=== PATIENT | female | born 1960 | race Caucasian/White ===

== ENCOUNTER 2023-04-17 08:32 | Day surgery (SDC) | payer BC ==
[~2023-04-17 08:32] MED LIST: Lactated Ringers 1,000 ML IV SCH
[2023-04-17] MEDS ORDERED: Sodium Chloride 0.9% 1,000 ML IV SCH (09:15)
[2023-04-17] MEDS ORDERED: propofoL 50 ML ONE (09:44)
[2023-04-17] MEDS ORDERED: ePHEDrine 50 MG/ML SDV ONE (10:11)
== END 2023-04-17 11:00 | disposition home or self-care (01) ==
LOC: MW.SDS 08:32
PROVIDERS: ATTEND Surgery
DX: Z12.11 Encounter for screening for malignant neoplasm of colon (principal); I12.9 Hypertensive chronic kidney disease with stage 1 through stage 4 chronic kidney disease, or unspecified chronic kidney disease; N18.9 Chronic kidney disease, unspecified; E78.00 Pure hypercholesterolemia, unspecified; Z90.710 Acquired absence of both cervix and uterus; Z87.891 Personal history of nicotine dependence; Z79.899 Other long term (current) drug therapy
CPT/HCPCS: 45378; J2704; J7030; 00812; J3490; J7120

== ENCOUNTER 2023-04-17 13:59 | Emergency (ER) | payer BC ==
[2023-04-17] MEDS ORDERED: Ondansetron 4 MG/2 ML SDV IVPUSH STA (14:36)
[2023-04-17] MEDS ORDERED: Sodium Chloride 0.9% 1,000 ML IV STA (14:36)
[2023-04-17] MEDS ORDERED: Sodium Chloride 0.9% 10 ML Syringe FLUSH PRN (14:36)
[2023-04-17] MEDS ORDERED: Sodium Chloride 0.9% 2.5 ML Syringe FLUSH PRN (14:36)
[2023-04-17 15:25] LABS: BASOPHILS ABSOLUTE AUTO 0.02 K/uL (0.00-0.20); BASOPHILS PERCENT AUTO 0.1 % (0.0-1.0); HEMOGLOBIN 12.1 g/dL (12.0-16.0); IMMATURE GRAN ABSOLUTE AUTO 0.05 K/uL (0.00-0.05); IMMATURE GRAN PERCENT AUTO 0.3 % (0.0-0.4); LYMPHOCYTES PERCENT AUTO 2.3 % (24.0-44.0); MEAN CORPUSCULAR HEMOGLOBIN 31.5 pg (28.0-32.0); MEAN CORPUSCULAR HGB CONC 35.6 g/dL (32.0-36.0); MEAN CORPUSCULAR VOLUME 88.5 fL (83.0-99.0); MEAN PLATELET VOLUME 9.8 fL (9.4-12.3); MONOCYTES ABSOLUTE AUTO 0.41 K/uL (0.00-0.80); MONOCYTES PERCENT AUTO 2.4 % (0.0-8.0); NEUTROPHILS ABSOLUTE AUTO 16.41 K/uL (1.80-7.70); NEUTROPHILS PERCENT AUTO 94.9 % (41.0-71.0); PLATELET COUNT,PLT 273 K/uL (150-400); RED BLOOD CELL COUNT 3.84 M/uL (4.10-5.30); WHITE BLOOD CELL COUNT,WBC 17.29 K/uL (3.9-11.3)
[2023-04-17] MEDS ORDERED: droPERidol 5 MG/2 ML SDV IVPUSH STA (15:41)
[2023-04-17 16:00] LABS: A/G RATIO 1.2 (0.9-1.6); ALBUMIN 4.5 g/dL (3.4-5.0); EST CRCL DRUG DOSING (CG) 15.99 mL/min; PROTEIN TOTAL,TP 8.1 g/dL (6.4-8.2)
[2023-04-17 16:22] LABS: BILIRUBIN TOTAL 0.3 mg/dL (0.2-1.0); CALCIUM 10.3 mg/dL (8.5-10.1); CARBON DIOXIDE,CO2 16.9 mmol/L (21.0-32.0); CREATININE 2.9 mg/dL (0.6-1.0)
[2023-04-17] MEDS ORDERED: Heparin Sodium/0.45% NaCl 500 ML IV SCH (16:45)
[2023-04-17] MEDS ORDERED: Heparin Sodium 5,000 Units/ML Vial IVPUSH STA (16:50)
[2023-04-17] MEDS ORDERED: Aspirin 81 MG Tab.Chew PO STA (16:51)
[2023-04-17] MEDS ORDERED: Morphine 2 MG/ML SYRINGE IVPUSH STA (17:21)
[2023-04-17] MEDS ORDERED: Rosuvastatin 10 MG Tab PO STA (17:46)
[2023-04-17] MEDS ORDERED: Metoprolol Succinate 25 MG Tab.ER PO STA (17:46)
== END 2023-04-17 20:08 ==
LOC: MW.ED 13:59
DX: I21.4 Non-ST elevation (NSTEMI) myocardial infarction (principal); R11.2 Nausea with vomiting, unspecified; I12.9 Hypertensive chronic kidney disease with stage 1 through stage 4 chronic kidney disease, or unspecified chronic kidney disease; N18.9 Chronic kidney disease, unspecified; E78.00 Pure hypercholesterolemia, unspecified; Z90.710 Acquired absence of both cervix and uterus; Z79.899 Other long term (current) drug therapy
CPT/HCPCS: 36415; 80053; 83735; 84484; 85025; 85730; 93005; 96361; 96365; 96366; 96375; 96376; 99285; A9270; J1644; J1790; J2270; J2405; J3490; J7030; 93010

== ENCOUNTER 2023-05-21 10:09 | Observation (INO) | payer BC ==
[2023-05-21] MEDS ORDERED: Sodium Chloride 0.9% 1,000 ML IV STA (11:21)
[2023-05-21 11:37] LABS: BASOPHILS ABSOLUTE AUTO 0.02 K/uL (0.00-0.20); BASOPHILS PERCENT AUTO 0.2 % (0.0-1.0); EOSINOPHILS ABSOLUTE AUTO 0.17 K/uL (0.00-0.45); EOSINOPHILS PERCENT AUTO 1.7 % (0.0-6.0); HEMATOCRIT 28.6 % (37.0-47.0); HEMOGLOBIN 9.3 g/dL (12.0-16.0); IMMATURE GRAN ABSOLUTE AUTO 0.05 K/uL (0.00-0.05); IMMATURE GRAN PERCENT AUTO 0.5 % (0.0-0.4); LYMPHOCYTES ABSOLUTE AUTO 0.66 K/uL (1.00-4.80); LYMPHOCYTES PERCENT AUTO 6.5 % (24.0-44.0); MEAN CORPUSCULAR HEMOGLOBIN 30.7 pg (28.0-32.0); MEAN CORPUSCULAR HGB CONC 32.5 g/dL (32.0-36.0); MEAN CORPUSCULAR VOLUME 94.4 fL (83.0-99.0); MEAN PLATELET VOLUME 9.1 fL (9.4-12.3); MONOCYTES ABSOLUTE AUTO 0.85 K/uL (0.00-0.80); MONOCYTES PERCENT AUTO 8.4 % (0.0-8.0); NEUTROPHILS ABSOLUTE AUTO 8.41 K/uL (1.80-7.70); NEUTROPHILS PERCENT AUTO 82.7 % (41.0-71.0); PLATELET COUNT,PLT 314 K/uL (150-400); RED BLOOD CELL COUNT 3.03 M/uL (4.10-5.30); WHITE BLOOD CELL COUNT,WBC 10.16 K/uL (3.9-11.3)
[2023-05-21 12:07] LABS: A/G RATIO 0.7 (0.9-1.6); ALBUMIN 2.9 g/dL (3.4-5.0); BILIRUBIN TOTAL 0.7 mg/dL (0.2-1.0); CALCIUM 9.1 mg/dL (8.5-10.1); CARBON DIOXIDE,CO2 24.5 mmol/L (21.0-32.0); CREATININE 2.9 mg/dL (0.6-1.0); EST CRCL DRUG DOSING (CG) 15.7 mL/min; MAGNESIUM 1.9 mg/dL (1.8-2.4); POTASSIUM,K 4.6 mmol/L (3.5-5.1); PROTEIN TOTAL,TP 7.3 g/dL (6.4-8.2)
[2023-05-21] MEDS ORDERED: Morphine 2 MG/ML SYRINGE IVPUSH PRN (19:39)
[2023-05-21] MEDS ORDERED: Acetaminophen 325 MG Tab PO PRN (19:39)
[2023-05-21] MEDS ORDERED: Acetaminophen 650 MG Supp RECTAL PRN (19:39)
[2023-05-21] MEDS ORDERED: Naloxone 0.4 MG/ML SDV IVPUSH PRN (19:42)
[2023-05-21] MEDS ORDERED: Albuterol/Ipratropium 3.0-0.5 MG/3 ML Neb Soln NEB PRN (19:42)
[2023-05-21] MEDS ORDERED: Sodium Chloride 0.9% 20 ML SDV IV PRN (19:42)
[2023-05-21] MEDS ORDERED: Sodium Chloride 0.9% 10 ML Syringe FLUSH PRN (19:42)
[2023-05-21] MEDS ORDERED: Sodium Chloride 0.9% 2.5 ML Syringe FLUSH PRN (19:42)
[2023-05-21] MEDS: Sodium Chloride 0.9% 1,000 ML IV SCH (20:11)
[2023-05-21] MEDS: Pantoprazole 40 MG in Sodium Chloride 0.9% 10 ML IVPUSH SCH (20:11)
[2023-05-21] MEDS: Ondansetron 4 MG/2 ML SDV IVPUSH PRN (22:30)
[2023-05-22] MEDS: Sodium Chloride 0.9% 1,000 ML IV SCH ×2 (03:43→10:50)
[2023-05-22 06:22] LABS: BASOPHILS ABSOLUTE AUTO 0.03 K/uL (0.00-0.20); BASOPHILS PERCENT AUTO 0.4 % (0.0-1.0); EOSINOPHILS ABSOLUTE AUTO 0.17 K/uL (0.00-0.45); EOSINOPHILS PERCENT AUTO 2.4 % (0.0-6.0); HEMATOCRIT 24.1 % (37.0-47.0); HEMOGLOBIN 7.7 g/dL (12.0-16.0); IMMATURE GRAN ABSOLUTE AUTO 0.05 K/uL (0.00-0.05); IMMATURE GRAN PERCENT AUTO 0.7 % (0.0-0.4); LYMPHOCYTES ABSOLUTE AUTO 0.74 K/uL (1.00-4.80); LYMPHOCYTES PERCENT AUTO 10.6 % (24.0-44.0); MEAN CORPUSCULAR HEMOGLOBIN 30.7 pg (28.0-32.0); MEAN PLATELET VOLUME 9.5 fL (9.4-12.3); MONOCYTES ABSOLUTE AUTO 0.74 K/uL (0.00-0.80); MONOCYTES PERCENT AUTO 10.6 % (0.0-8.0); NEUTROPHILS ABSOLUTE AUTO 5.28 K/uL (1.80-7.70); NEUTROPHILS PERCENT AUTO 75.3 % (41.0-71.0); PLATELET COUNT,PLT 283 K/uL (150-400); RED BLOOD CELL COUNT 2.51 M/uL (4.10-5.30); WHITE BLOOD CELL COUNT,WBC 7.01 K/uL (3.9-11.3)
[2023-05-22 06:55] LABS: A/G RATIO 0.6 (0.9-1.6); ALBUMIN 2.3 g/dL (3.4-5.0); BILIRUBIN TOTAL 0.7 mg/dL (0.2-1.0); C-REACTIVE PROTEIN 1.19 mg/dL (<0.3); CALCIUM 8.6 mg/dL (8.5-10.1); CARBON DIOXIDE,CO2 19.5 mmol/L (21.0-32.0); CREATININE 2.4 mg/dL (0.6-1.0); EST CRCL DRUG DOSING (CG) 18.55 mL/min; MAGNESIUM 1.7 mg/dL (1.8-2.4); PHOSPHORUS 3.7 mg/dL (2.6-4.7); POTASSIUM,K 4.5 mmol/L (3.5-5.1); PROTEIN TOTAL,TP 5.9 g/dL (6.4-8.2)
[2023-05-22] MEDS: Ondansetron 4 MG/2 ML SDV IVPUSH PRN (08:54)
[2023-05-22] MEDS: Clopidogrel 75 MG Tab PO SCH (08:58)
[2023-05-22] MEDS: Aspirin 81 MG Tab.Chew PO SCH (08:58)
[2023-05-22] MEDS: Metoprolol Succinate 50 MG Tab.ER PO SCH (08:58)
[2023-05-22] MEDS ORDERED: Magnesium Sulfate/Water 2 GM in Premix Bag 1 BAG IV ONE (11:57)
[2023-05-22] MEDS: Sodium Bicarbonate 650 MG Tab PO SCH ×2 (13:55→22:38)
[2023-05-22] MEDS: cloNIDine 0.1 MG Tab PO SCH ×2 (13:56→20:27)
[2023-05-22] MEDS: amLODIPine 5 MG Tab PO SCH (13:58)
[2023-05-22] MEDS: Pantoprazole 40 MG in Sodium Chloride 0.9% 10 ML IVPUSH SCH (20:27)
[2023-05-22] MEDS ORDERED: Rosuvastatin 10 MG Tab PO SCH (21:00)
[2023-05-23] MEDS: Sodium Bicarbonate 650 MG Tab PO SCH (05:14)
[2023-05-23 06:34] LABS: BASOPHILS ABSOLUTE AUTO 0.02 K/uL (0.00-0.20); BASOPHILS PERCENT AUTO 0.3 % (0.0-1.0); EOSINOPHILS ABSOLUTE AUTO 0.31 K/uL (0.00-0.45); EOSINOPHILS PERCENT AUTO 4.2 % (0.0-6.0); HEMATOCRIT 22.5 % (37.0-47.0); HEMOGLOBIN 7.4 g/dL (12.0-16.0); IMMATURE GRAN ABSOLUTE AUTO 0.02 K/uL (0.00-0.05); IMMATURE GRAN PERCENT AUTO 0.3 % (0.0-0.4); LYMPHOCYTES PERCENT AUTO 9.5 % (24.0-44.0); MEAN CORPUSCULAR HGB CONC 32.9 g/dL (32.0-36.0); MEAN CORPUSCULAR VOLUME 94.1 fL (83.0-99.0); MEAN PLATELET VOLUME 9.5 fL (9.4-12.3); MONOCYTES ABSOLUTE AUTO 0.72 K/uL (0.00-0.80); MONOCYTES PERCENT AUTO 9.7 % (0.0-8.0); NEUTROPHILS ABSOLUTE AUTO 5.63 K/uL (1.80-7.70); PLATELET COUNT,PLT 263 K/uL (150-400); RED BLOOD CELL COUNT 2.39 M/uL (4.10-5.30)
[2023-05-23 07:01] LABS: A/G RATIO 0.7 (0.9-1.6); ALBUMIN 2.3 g/dL (3.4-5.0); BILIRUBIN TOTAL 0.6 mg/dL (0.2-1.0); CALCIUM 7.8 mg/dL (8.5-10.1); CARBON DIOXIDE,CO2 21.4 mmol/L (21.0-32.0); CREATININE 2.3 mg/dL (0.6-1.0); EST CRCL DRUG DOSING (CG) 19.36 mL/min; POTASSIUM,K 4.5 mmol/L (3.5-5.1); PROTEIN TOTAL,TP 5.7 g/dL (6.4-8.2)
[2023-05-23] MEDS: Aspirin 81 MG Tab.Chew PO SCH (08:53)
[2023-05-23] MEDS: cloNIDine 0.1 MG Tab PO SCH (08:53)
[2023-05-23] MEDS: Metoprolol Succinate 50 MG Tab.ER PO SCH (08:54)
[2023-05-23] MEDS: amLODIPine 5 MG Tab PO SCH (08:55)
[2023-05-23] MEDS: Clopidogrel 75 MG Tab PO SCH (08:55)
== END 2023-05-23 13:00 | disposition home or self-care (01) ==
LOC: MW.ED 10:09 → MW.MS 18:27
PROVIDERS: ADMIT Family Medicine; ATTEND Family Medicine
DX: K85.90 Acute pancreatitis without necrosis or infection, unspecified (principal); N18.4 Chronic kidney disease, stage 4 (severe); I10 Essential (primary) hypertension; Z95.1 Presence of aortocoronary bypass graft; Z79.899 Other long term (current) drug therapy; Z79.51 Long term (current) use of inhaled steroids
CPT/HCPCS: 36415; 71250; 74176; 80053; 82150; 82947; 83690; 83735; 83880; 84100; 84484; 85025; 86140; 93005; 96361; 96365; 96366; 99285; A9270; C9113; J2405; J3475; J3490; J7030; 93010; 99222; 99232; 99239; 99284

== ENCOUNTER 2023-06-07 14:03 | Inpatient (IN) | payer BC ==
[2023-06-07] MEDS ORDERED: Sodium Chloride 0.9% 10 ML Syringe FLUSH PRN (14:07)
[2023-06-07] MEDS ORDERED: Sodium Chloride 0.9% 2.5 ML Syringe FLUSH PRN (14:07)
[2023-06-07] MEDS ORDERED: Sodium Chloride 0.9% 1,000 ML IV ONE ×2 (14:25→20:30)
[2023-06-07] MEDS ORDERED: Ondansetron 4 MG/2 ML SDV IVPUSH ONE (14:25)
[2023-06-07 14:35] LABS: BASOPHILS ABSOLUTE AUTO 0.03 K/uL (0.00-0.20); BASOPHILS PERCENT AUTO 0.2 % (0.0-1.0); HEMATOCRIT 30.6 % (37.0-47.0); HEMOGLOBIN 10.3 g/dL (12.0-16.0); IMMATURE GRAN ABSOLUTE AUTO 0.05 K/uL (0.00-0.05); IMMATURE GRAN PERCENT AUTO 0.4 % (0.0-0.4); LYMPHOCYTES ABSOLUTE AUTO 0.34 K/uL (1.00-4.80); LYMPHOCYTES PERCENT AUTO 2.5 % (24.0-44.0); MEAN CORPUSCULAR HEMOGLOBIN 31.1 pg (28.0-32.0); MEAN CORPUSCULAR HGB CONC 33.7 g/dL (32.0-36.0); MEAN CORPUSCULAR VOLUME 92.4 fL (83.0-99.0); MEAN PLATELET VOLUME 9.4 fL (9.4-12.3); MONOCYTES ABSOLUTE AUTO 0.39 K/uL (0.00-0.80); MONOCYTES PERCENT AUTO 2.8 % (0.0-8.0); NEUTROPHILS ABSOLUTE AUTO 12.95 K/uL (1.80-7.70); NEUTROPHILS PERCENT AUTO 94.1 % (41.0-71.0); PLATELET COUNT,PLT 310 K/uL (150-400); RED BLOOD CELL COUNT 3.31 M/uL (4.10-5.30); WHITE BLOOD CELL COUNT,WBC 13.76 K/uL (3.9-11.3)
[2023-06-07] MEDS ORDERED: Promethazine 25 MG/ML SDV IM ONE (14:47)
[2023-06-07 15:02] LABS: A/G RATIO 0.8 (0.9-1.6); ALBUMIN 3.6 g/dL (3.4-5.0); BILIRUBIN TOTAL 0.9 mg/dL (0.2-1.0); CALCIUM 10.6 mg/dL (8.5-10.1); CARBON DIOXIDE,CO2 16.4 mmol/L (21.0-32.0); CREATININE 3.4 mg/dL (0.6-1.0); EST CRCL DRUG DOSING (CG) 15.85 mL/min; MAGNESIUM 1.7 mg/dL (1.8-2.4); POTASSIUM,K 4.7 mmol/L (3.5-5.1); PROTEIN TOTAL,TP 8.4 g/dL (6.4-8.2)
[2023-06-07 15:10] LABS: CORONAVIRUS COVID-19 NAA NEGATIVE (NEGATIVE); INFLUENZA A NAA NEGATIVE (NEGATIVE); INFLUENZA B NAA NEGATIVE (NEGATIVE)
[2023-06-07] MEDS ORDERED: droPERidol 5 MG/2 ML SDV IVPUSH ONE (17:08)
[2023-06-07 17:34] LABS: APPEARANCE,URINE SLT CLOUDY; BILIRUBIN,URINE NEGATIVE (NEGATIVE); COLOR,URINE YELLOW; GLUCOSE,URINE NEGATIVE (NEGATIVE); KETONES,URINE 15 mg/dL (NEGATIVE); LEUKOCYTE ESTERASE,URINE NEGATIVE (NEGATIVE); NITRITE,URINE NEGATIVE (NEGATIVE); OCCULT BLOOD,URINE TRACE-INTACT (NEGATIVE); PROTEIN,URINE 100 mg/dL (NEGATIVE)
[2023-06-07 17:38] LABS: BACTERIA,URINE 3+ (NEGATIVE); MUCUS,URINE LIGHT (NONE-MOD); SQUAMOUS EPITHELIAL CELLS,UR FEW; WBC,URINE 0-2 (0-5/HPF)
[2023-06-07 19:34] LABS: LACTIC ACID 3.3 mmol/L (0.4-2.0)
[2023-06-07] MEDS: Ondansetron 4 MG/2 ML SDV IVPUSH PRN ×2 (19:58→20:03)
[2023-06-07] MEDS: Sodium Chloride 0.9% 1,000 ML IV SCH (21:05)
[2023-06-07] MEDS: Promethazine 25 MG/ML SDV IM PRN (22:11)
[2023-06-07] MEDS ORDERED: Melatonin 3 MG Tab PO PRN (22:49)
[2023-06-07] MEDS: cloNIDine 0.1 MG Tab PO SCH ×2 (23:09→23:52)
[2023-06-07] MEDS: Metoclopramide 10 MG/2 ML SDV IVPUSH PRN (23:21)
[2023-06-07] MEDS: Pantoprazole 40 MG in Sodium Chloride 0.9% 10 ML IVPUSH SCH (23:24)
[2023-06-07] MEDS: cefTRIAXone 1 GM in Sodium Chloride 0.9% 50 ML IV SCH (23:34)
[2023-06-07] MEDS: Metoprolol Succinate 50 MG Tab.ER PO SCH (23:53)
[2023-06-07] MEDS: Sodium Bicarbonate 650 MG Tab PO SCH (23:53)
[2023-06-07] MEDS: Rosuvastatin 10 MG Tab PO SCH (23:53)
[2023-06-08] MEDS: Sodium Chloride 0.9% 1,000 ML IV SCH ×2 (02:12→10:15)
[2023-06-08] MEDS: Ondansetron 4 MG/2 ML SDV IVPUSH PRN ×2 (04:06→08:50)
[2023-06-08] MEDS: Metoclopramide 10 MG/2 ML SDV IVPUSH PRN ×2 (05:29→12:07)
[2023-06-08 05:53] LABS: BASOPHILS ABSOLUTE AUTO 0.01 K/uL (0.00-0.20); BASOPHILS PERCENT AUTO 0.1 % (0.0-1.0); EOSINOPHILS ABSOLUTE AUTO 0.01 K/uL (0.00-0.45); EOSINOPHILS PERCENT AUTO 0.1 % (0.0-6.0); HEMATOCRIT 27.5 % (37.0-47.0); IMMATURE GRAN ABSOLUTE AUTO 0.09 K/uL (0.00-0.05); IMMATURE GRAN PERCENT AUTO 0.8 % (0.0-0.4); LYMPHOCYTES ABSOLUTE AUTO 0.67 K/uL (1.00-4.80); MEAN CORPUSCULAR HGB CONC 32.7 g/dL (32.0-36.0); MEAN CORPUSCULAR VOLUME 94.8 fL (83.0-99.0); MEAN PLATELET VOLUME 9.9 fL (9.4-12.3); MONOCYTES ABSOLUTE AUTO 0.97 K/uL (0.00-0.80); MONOCYTES PERCENT AUTO 8.7 % (0.0-8.0); NEUTROPHILS ABSOLUTE AUTO 9.36 K/uL (1.80-7.70); NEUTROPHILS PERCENT AUTO 84.3 % (41.0-71.0); PLATELET COUNT,PLT 281 K/uL (150-400); WHITE BLOOD CELL COUNT,WBC 11.11 K/uL (3.9-11.3)
[2023-06-08] MEDS: Sodium Bicarbonate 650 MG Tab PO SCH ×3 (06:08→21:58)
[2023-06-08 06:20] LABS: CALCIUM 9.6 mg/dL (8.5-10.1); CARBON DIOXIDE,CO2 17.6 mmol/L (21.0-32.0); CREATININE 2.7 mg/dL (0.6-1.0); EST CRCL DRUG DOSING (CG) 14.98 mL/min; POTASSIUM,K 4.5 mmol/L (3.5-5.1)
[2023-06-08] MEDS: Promethazine 25 MG/ML SDV IM PRN (06:27)
[2023-06-08] MEDS ORDERED: Melatonin 3 MG Tab PO PRN (08:41)
[2023-06-08] MEDS: Metoprolol Succinate 50 MG Tab.ER PO SCH ×2 (08:54→21:58)
[2023-06-08] MEDS: Clopidogrel 75 MG Tab PO SCH (08:55)
[2023-06-08] MEDS: cloNIDine 0.1 MG Tab PO SCH ×2 (08:55→21:57)
[2023-06-08] MEDS: Aspirin 81 MG Tab.Chew PO SCH (08:55)
[2023-06-08] MEDS: Rosuvastatin 10 MG Tab PO SCH (08:55)
[2023-06-08] MEDS ORDERED: Melatonin 3 MG Tab PO SCH (09:00)
[2023-06-08] MEDS: Melatonin 3 MG Tab PO SCH (21:57)
[2023-06-08] MEDS: Pantoprazole 40 MG in Sodium Chloride 0.9% 10 ML IVPUSH SCH (22:01)
[2023-06-08] MEDS: cefTRIAXone 1 GM in Sodium Chloride 0.9% 50 ML IV SCH (22:14)
[2023-06-09] MEDS: Sodium Chloride 0.9% 1,000 ML IV SCH (00:16)
[2023-06-09] MEDS: Sodium Bicarbonate 650 MG Tab PO SCH ×4 (05:17→21:51)
[2023-06-09 05:56] LABS: BASOPHILS ABSOLUTE AUTO 0.04 K/uL (0.00-0.20); BASOPHILS PERCENT AUTO 0.5 % (0.0-1.0); EOSINOPHILS ABSOLUTE AUTO 0.36 K/uL (0.00-0.45); EOSINOPHILS PERCENT AUTO 4.8 % (0.0-6.0); HEMATOCRIT 21.6 % (37.0-47.0); HEMOGLOBIN 6.9 g/dL (12.0-16.0); IMMATURE GRAN ABSOLUTE AUTO 0.04 K/uL (0.00-0.05); IMMATURE GRAN PERCENT AUTO 0.5 % (0.0-0.4); LYMPHOCYTES ABSOLUTE AUTO 0.82 K/uL (1.00-4.80); LYMPHOCYTES PERCENT AUTO 10.8 % (24.0-44.0); MEAN CORPUSCULAR HEMOGLOBIN 30.9 pg (28.0-32.0); MEAN CORPUSCULAR HGB CONC 31.9 g/dL (32.0-36.0); MEAN CORPUSCULAR VOLUME 96.9 fL (83.0-99.0); MEAN PLATELET VOLUME 9.6 fL (9.4-12.3); MONOCYTES ABSOLUTE AUTO 0.61 K/uL (0.00-0.80); MONOCYTES PERCENT AUTO 8.1 % (0.0-8.0); NEUTROPHILS ABSOLUTE AUTO 5.69 K/uL (1.80-7.70); NEUTROPHILS PERCENT AUTO 75.3 % (41.0-71.0); PLATELET COUNT,PLT 238 K/uL (150-400); RED BLOOD CELL COUNT 2.23 M/uL (4.10-5.30); WHITE BLOOD CELL COUNT,WBC 7.56 K/uL (3.9-11.3)
[2023-06-09 06:20] LABS: CALCIUM 8.5 mg/dL (8.5-10.1); CARBON DIOXIDE,CO2 22.1 mmol/L (21.0-32.0); CREATININE 2.6 mg/dL (0.6-1.0); EST CRCL DRUG DOSING (CG) 15.56 mL/min
[2023-06-09] MEDS: Aspirin 81 MG Tab.Chew PO SCH (08:54)
[2023-06-09] MEDS: cloNIDine 0.1 MG Tab PO SCH ×2 (08:55→20:42)
[2023-06-09] MEDS: Rosuvastatin 10 MG Tab PO SCH (08:56)
[2023-06-09] MEDS: Clopidogrel 75 MG Tab PO SCH (08:57)
[2023-06-09] MEDS: Metoprolol Succinate 50 MG Tab.ER PO SCH ×2 (09:00→20:42)
[2023-06-09] MEDS ORDERED: Metoclopramide 10 MG/2 ML SDV IVPUSH PRN (10:00)
[2023-06-09 10:24] LABS: PERCENT FE SATURATION 43.98 % (20-55)
[2023-06-09 11:36] LABS: IMMATURE RETIC FRACTION 14.1 %; RED BLOOD CELL COUNT 2.3 M/uL (4.10-5.30); RETICULOCYTE ABSOLUTE 0.058 K/uL (0.02-0.11); RETICULOCYTE COUNT PERCENT 2.52 % (0.5-2.0)
[2023-06-09] MEDS: cefTRIAXone 1 GM in Sodium Chloride 0.9% 50 ML IV SCH (23:56)
[2023-06-09] MEDS: Pantoprazole 40 MG in Sodium Chloride 0.9% 10 ML IVPUSH SCH (23:56)
[2023-06-10] MEDS: Melatonin 3 MG Tab PO SCH (00:40)
[2023-06-10 02:01] LABS: BASOPHILS ABSOLUTE AUTO 0.03 K/uL (0.00-0.20); BASOPHILS PERCENT AUTO 0.4 % (0.0-1.0); EOSINOPHILS ABSOLUTE AUTO 0.45 K/uL (0.00-0.45); EOSINOPHILS PERCENT AUTO 6.6 % (0.0-6.0); HEMATOCRIT 29.9 % (37.0-47.0); HEMOGLOBIN 10.1 g/dL (12.0-16.0); IMMATURE GRAN ABSOLUTE AUTO 0.04 K/uL (0.00-0.05); IMMATURE GRAN PERCENT AUTO 0.6 % (0.0-0.4); LYMPHOCYTES ABSOLUTE AUTO 0.65 K/uL (1.00-4.80); LYMPHOCYTES PERCENT AUTO 9.5 % (24.0-44.0); MEAN CORPUSCULAR HEMOGLOBIN 31.5 pg (28.0-32.0); MEAN CORPUSCULAR HGB CONC 33.8 g/dL (32.0-36.0); MEAN CORPUSCULAR VOLUME 93.1 fL (83.0-99.0); MEAN PLATELET VOLUME 9.1 fL (9.4-12.3); MONOCYTES PERCENT AUTO 5.9 % (0.0-8.0); NEUTROPHILS ABSOLUTE AUTO 5.24 K/uL (1.80-7.70); PLATELET COUNT,PLT 248 K/uL (150-400); RED BLOOD CELL COUNT 3.21 M/uL (4.10-5.30); WHITE BLOOD CELL COUNT,WBC 6.81 K/uL (3.9-11.3)
[2023-06-10 02:26] LABS: CALCIUM 8.7 mg/dL (8.5-10.1); CARBON DIOXIDE,CO2 24.5 mmol/L (21.0-32.0); CREATININE 2.5 mg/dL (0.6-1.0); EST CRCL DRUG DOSING (CG) 16.18 mL/min; POTASSIUM,K 3.8 mmol/L (3.5-5.1)
[2023-06-10] MEDS: Sodium Bicarbonate 650 MG Tab PO SCH (07:26)
[2023-06-10] MEDS: Clopidogrel 75 MG Tab PO SCH (09:28)
[2023-06-10] MEDS: Metoprolol Succinate 50 MG Tab.ER PO SCH (09:35)
[2023-06-10] MEDS: Rosuvastatin 10 MG Tab PO SCH (09:35)
[2023-06-10] MEDS: Aspirin 81 MG Tab.Chew PO SCH (09:45)
[2023-06-10] MEDS: cloNIDine 0.1 MG Tab PO SCH (09:45)
== END 2023-06-10 11:25 | disposition home or self-care (01) | DRG 249 ==
LOC: MW.ED 14:03 → MW.MS 17:09 → OBSVTOIN 06-08 10:03 → MW.MS 06-08 13:37
PROVIDERS: ADMIT Internal Medicine; ATTEND Internal Medicine
PROC: 30233N1 Transfusion of Nonautologous Red Blood Cells into Peripheral Vein, Percutaneous Approach (ICD-10-PCS; principal; 2023-06-09)
DX: K52.9 Noninfective gastroenteritis and colitis, unspecified (principal); K85.00 Idiopathic acute pancreatitis without necrosis or infection; D63.1 Anemia in chronic kidney disease; N17.9 Acute kidney failure, unspecified; N18.4 Chronic kidney disease, stage 4 (severe); I12.9 Hypertensive chronic kidney disease with stage 1 through stage 4 chronic kidney disease, or unspecified chronic kidney disease; E78.00 Pure hypercholesterolemia, unspecified; E86.0 Dehydration; N39.0 Urinary tract infection, site not specified; Z11.52 Encounter for screening for COVID-19; I25.2 Old myocardial infarction; Z95.1 Presence of aortocoronary bypass graft; Z79.02 Long term (current) use of antithrombotics/antiplatelets; Z95.5 Presence of coronary angioplasty implant and graft; Z79.899 Other long term (current) drug therapy; Z79.82 Long term (current) use of aspirin; Z90.710 Acquired absence of both cervix and uterus
CPT/HCPCS: 0240U; 36415; 36430; 71045; 71045-26; 74176; 74176-26; 76705; 76705-26; 80048; 80053; 81001; 83550; 83605; 83690; 83735; 84484; 85025; 85045; 86850; 86900; 86901; 86902; 86920; 86921; 86922; 87086; 87088; 87186; 93005; 93010; 96361; 96365; 96372; 96374; 96375; 96376; 99284; 99285-25; A9270-GY; C9113; G0378; J0696; J1790; J2405; J2550; J2765; J3490; J7030; P9016

== ENCOUNTER 2023-06-29 18:27 | Inpatient (IN) | payer BC ==
[2023-06-29] MEDS: Sodium Chloride 0.9% 10 ML Syringe FLUSH PRN (19:10)
[2023-06-29] MEDS: Sodium Chloride 0.9% 2.5 ML Syringe FLUSH PRN (19:10)
[2023-06-29] MEDS: Sodium Chloride 0.9% 1,000 ML IV STA ×2 (19:10→23:42)
[2023-06-29] MEDS: Ondansetron 4 MG/2 ML SDV IVPUSH STA (19:10)
[2023-06-29 19:28] LABS: BASOPHILS ABSOLUTE AUTO 0.03 K/uL (0.00-0.20); BASOPHILS PERCENT AUTO 0.2 % (0.0-1.0); HEMATOCRIT 36.2 % (37.0-47.0); HEMOGLOBIN 12.5 g/dL (12.0-16.0); IMMATURE GRAN ABSOLUTE AUTO 0.11 K/uL (0.00-0.05); IMMATURE GRAN PERCENT AUTO 0.6 % (0.0-0.4); LYMPHOCYTES ABSOLUTE AUTO 0.58 K/uL (1.00-4.80); LYMPHOCYTES PERCENT AUTO 3.2 % (24.0-44.0); MEAN CORPUSCULAR HGB CONC 34.5 g/dL (32.0-36.0); MEAN CORPUSCULAR VOLUME 89.8 fL (83.0-99.0); MEAN PLATELET VOLUME 9.4 fL (9.4-12.3); MONOCYTES ABSOLUTE AUTO 0.53 K/uL (0.00-0.80); MONOCYTES PERCENT AUTO 2.9 % (0.0-8.0); NEUTROPHILS ABSOLUTE AUTO 16.76 K/uL (1.80-7.70); NEUTROPHILS PERCENT AUTO 93.1 % (41.0-71.0); PLATELET COUNT,PLT 345 K/uL (150-400); RED BLOOD CELL COUNT 4.03 M/uL (4.10-5.30); WHITE BLOOD CELL COUNT,WBC 18.01 K/uL (3.9-11.3)
[2023-06-29] MEDS: Sodium Chloride 0.9% 1,000 ML IV ONE ×2 (19:44→20:38)
[2023-06-29 20:06] LABS: MAGNESIUM 1.7 mg/dL (1.8-2.4)
[2023-06-29 20:14] LABS: A/G RATIO 1.2 (0.9-1.6); ALBUMIN 4.3 g/dL (3.4-5.0); BILIRUBIN TOTAL 0.6 mg/dL (0.2-1.0); CALCIUM 11.2 mg/dL (8.5-10.1); CARBON DIOXIDE,CO2 12.5 mmol/L (21.0-32.0); CREATININE 3.5 mg/dL (0.6-1.0); EST CRCL DRUG DOSING (CG) 11.78 mL/min
[2023-06-29 20:58] LABS: APPEARANCE,URINE CLEAR; BILIRUBIN,URINE NEGATIVE (NEGATIVE); COLOR,URINE YELLOW; GLUCOSE,URINE 250 mg/dL (NEGATIVE); KETONES,URINE 40 mg/dL (NEGATIVE); LEUKOCYTE ESTERASE,URINE NEGATIVE (NEGATIVE); NITRITE,URINE NEGATIVE (NEGATIVE); OCCULT BLOOD,URINE TRACE-INTACT (NEGATIVE); PH,URINE 6.5 (5.0-8.0); PROTEIN,URINE 100 mg/dL (NEGATIVE); UROBILINOGEN,URINE 0.2 EU/dL (<2.0)
[2023-06-29] MEDS: Insulin Regular, Human 100 Units/ML 10 ML Vial IVPUSH ONE (21:25)
[2023-06-29] MEDS: droPERidol 5 MG/2 ML SDV IVPUSH ONE (21:25)
[2023-06-29 21:51] LABS: BACTERIA,URINE MODERATE (NEGATIVE); EPITHELIAL CELLS,URINE MANY (NONE-FEW)
[2023-06-29 22:13] LABS: BASE EXCESS VENOUS -7.3 (-2.0-3.0); PH,VENOUS 7.36 (7.31-7.41)
[2023-06-29 22:31] LABS: CARBON DIOXIDE,CO2 18.3 mmol/L (21.0-32.0); CREATININE 2.8 mg/dL (0.6-1.0); EST CRCL DRUG DOSING (CG) 14.73 mL/min
[2023-06-30] MEDS: droPERidol 5 MG/2 ML SDV IVPUSH ONE (00:49)
[2023-06-30] MEDS: Promethazine 25 MG/ML SDV IM PRN (02:23)
[2023-06-30 04:32] LABS: BASOPHILS ABSOLUTE AUTO 0.01 K/uL (0.00-0.20); BASOPHILS PERCENT AUTO 0.1 % (0.0-1.0); HEMATOCRIT 31.1 % (37.0-47.0); HEMOGLOBIN 10.4 g/dL (12.0-16.0); IMMATURE GRAN ABSOLUTE AUTO 0.05 K/uL (0.00-0.05); IMMATURE GRAN PERCENT AUTO 0.4 % (0.0-0.4); LYMPHOCYTES ABSOLUTE AUTO 0.78 K/uL (1.00-4.80); LYMPHOCYTES PERCENT AUTO 6.9 % (24.0-44.0); MEAN CORPUSCULAR HEMOGLOBIN 30.8 pg (28.0-32.0); MEAN CORPUSCULAR HGB CONC 33.4 g/dL (32.0-36.0); MEAN PLATELET VOLUME 9.5 fL (9.4-12.3); MONOCYTES PERCENT AUTO 9.7 % (0.0-8.0); NEUTROPHILS ABSOLUTE AUTO 9.38 K/uL (1.80-7.70); NEUTROPHILS PERCENT AUTO 82.9 % (41.0-71.0); PLATELET COUNT,PLT 233 K/uL (150-400); RED BLOOD CELL COUNT 3.38 M/uL (4.10-5.30); WHITE BLOOD CELL COUNT,WBC 11.32 K/uL (3.9-11.3)
[2023-06-30 04:59] LABS: LACTIC ACID 1.4 mmol/L (0.4-2.0)
[2023-06-30] MEDS: Sodium Chloride 0.9% 1,000 ML IV SCH (05:19)
[2023-06-30] MEDS: Pantoprazole 40 MG in Sodium Chloride 0.9% 10 ML IVPUSH SCH (07:58)
[2023-06-30 08:17] LABS: HEMOGLOBIN A1C 5.9 %
[2023-06-30] MEDS ORDERED: 50% Dextrose in Water 50 ML Syringe IVPUSH PRN (08:47)
[2023-06-30] MEDS ORDERED: Glucagon,Human Recombinant 1 MG Vial IM PRN (08:47)
[2023-06-30] MEDS: Aspirin 81 MG Tab.Chew PO SCH (10:17)
[2023-06-30] MEDS: Clopidogrel 75 MG Tab PO SCH (10:17)
[2023-06-30] MEDS: Metoprolol Tartrate 50 MG Tab PO SCH (10:18)
[2023-06-30] MEDS: amLODIPine 5 MG Tab PO SCH (10:18)
[2023-06-30] MEDS: cloNIDine 0.1 MG Tab PO SCH (10:19)
[2023-06-30] MEDS: Metoclopramide 10 MG/2 ML SDV IVPUSH PRN (10:20)
[2023-06-30] MEDS: Amiodarone 200 MG Tab PO SCH (10:20)
[2023-06-30] MEDS: Enoxaparin 30 MG/0.3 ML Syringe SUBCUT SCH (10:21)
[2023-06-30] MEDS: Sodium Bicarbonate 650 MG Tab PO SCH (10:59)
[2023-06-30] MEDS: Insulin Aspart 100 Units/ML 3 ML Pen SUBCUT SCH (11:36)
[2023-06-30 14:04] LABS: CORONAVIRUS COVID-19 NAA NEGATIVE (NEGATIVE); INFLUENZA A NAA NEGATIVE (NEGATIVE); INFLUENZA B NAA NEGATIVE (NEGATIVE); RESPIRATORY SYNCYTIAL VIR NAA NEGATIVE (NEGATIVE)
[2023-06-30] MEDS: Rosuvastatin 10 MG Tab PO SCH (20:59)
[2023-06-30] MEDS ORDERED: Melatonin 3 MG Tab PO PRN (21:00)
[2023-07-01 05:54] LABS: BASOPHILS ABSOLUTE AUTO 0.03 K/uL (0.00-0.20); BASOPHILS PERCENT AUTO 0.4 % (0.0-1.0); EOSINOPHILS ABSOLUTE AUTO 0.18 K/uL (0.00-0.45); EOSINOPHILS PERCENT AUTO 2.6 % (0.0-6.0); HEMATOCRIT 24.5 % (37.0-47.0); HEMOGLOBIN 8.1 g/dL (12.0-16.0); IMMATURE GRAN ABSOLUTE AUTO 0.03 K/uL (0.00-0.05); IMMATURE GRAN PERCENT AUTO 0.4 % (0.0-0.4); LYMPHOCYTES ABSOLUTE AUTO 1.35 K/uL (1.00-4.80); LYMPHOCYTES PERCENT AUTO 19.4 % (24.0-44.0); MEAN CORPUSCULAR HEMOGLOBIN 31.2 pg (28.0-32.0); MEAN CORPUSCULAR HGB CONC 33.1 g/dL (32.0-36.0); MEAN CORPUSCULAR VOLUME 94.2 fL (83.0-99.0); MEAN PLATELET VOLUME 9.6 fL (9.4-12.3); MONOCYTES ABSOLUTE AUTO 0.58 K/uL (0.00-0.80); MONOCYTES PERCENT AUTO 8.3 % (0.0-8.0); NEUTROPHILS PERCENT AUTO 68.9 % (41.0-71.0); PLATELET COUNT,PLT 199 K/uL (150-400); WHITE BLOOD CELL COUNT,WBC 6.97 K/uL (3.9-11.3)
[2023-07-01 06:38] LABS: ALBUMIN 2.6 g/dL (3.4-5.0); BILIRUBIN TOTAL 0.3 mg/dL (0.2-1.0); CALCIUM 8.4 mg/dL (8.5-10.1); CARBON DIOXIDE,CO2 23.2 mmol/L (21.0-32.0); CREATININE 2.1 mg/dL (0.6-1.0); EST CRCL DRUG DOSING (CG) 19.81 mL/min; MAGNESIUM 1.5 mg/dL (1.8-2.4); POTASSIUM,K 3.7 mmol/L (3.5-5.1); PROTEIN TOTAL,TP 5.3 g/dL (6.4-8.2)
[2023-07-01] MEDS: Magnesium Sulfate/Water 4 GM in Premix Bag 1 BAG IV ONE (07:41)
[2023-07-01 11:36] LABS: PERCENT FE SATURATION 60.45 % (20-55)
== END 2023-07-01 12:45 | disposition home or self-care (01) | DRG 249 ==
LOC: MW.ED 18:27 → MW.MS 23:34
PROVIDERS: ADMIT Internal Medicine; ATTEND Internal Medicine
DX: R11.2 Nausea with vomiting, unspecified (principal); R73.03 Prediabetes; N39.0 Urinary tract infection, site not specified; E87.20 Acidosis, unspecified; N18.4 Chronic kidney disease, stage 4 (severe); I12.9 Hypertensive chronic kidney disease with stage 1 through stage 4 chronic kidney disease, or unspecified chronic kidney disease; E78.00 Pure hypercholesterolemia, unspecified; T36.4X5A Adverse effect of tetracyclines, initial encounter; D72.829 Elevated white blood cell count, unspecified; I25.10 Atherosclerotic heart disease of native coronary artery without angina pectoris; I25.2 Old myocardial infarction; Z95.1 Presence of aortocoronary bypass graft; Z79.82 Long term (current) use of aspirin; Z79.899 Other long term (current) drug therapy; Z79.02 Long term (current) use of antithrombotics/antiplatelets; Z95.5 Presence of coronary angioplasty implant and graft; Z90.710 Acquired absence of both cervix and uterus; Z11.52 Encounter for screening for COVID-19
CPT/HCPCS: 0241U; 36415; 71045; 71045-26; 74018; 74018-26; 80048; 80053; 81001; 82803; 82947; 83036; 83550; 83605; 83690; 83735; 84484; 85025; 93005; 96361; 96374; 96375; 99222; 99239; 99285; 99285-25; A9270-GY; C9113; J1650; J1790; J1815-GY; J2405; J2550; J2765; J3475; J3490; J7030